=== PATIENT | male | born 1950 | race Two or more races ===

== ENCOUNTER 2025-03-17 16:28 | Inpatient (IN) | payer MEDICARE, OTHER ==
[~2025-03-17] VITALS: Ht 170.2 cm; Wt 86.6 kg
[2025-03-17 17:34] LABS: PLATELET COUNT (AUTO) 123 K/uL (150-450); RED BLOOD CELL COUNT(AUTO) 4.57 MIL/uL (4.5-6.0); RED CELL DISTRIBUTION WIDTH 14.2 % (11.5-15.0); WHITE BLOOD COUNT (AUTO) 6.0 K/uL (4.3-11.0)
[2025-03-17 17:59] LABS: APPEARANCE,URINE CLEAR (CLEAR); BLOOD, URINE NEGATIVE Ery/uL (NEGATIVE); LEUKOCYTE ESTERASE ,URINE 1+ (NEGATIVE); NITRITE, URINE NEGATIVE (NEGATIVE); UGLUCOSE NEGATIVE (NEGATIVE)
[2025-03-17 18:07] LABS: ADD URINE CULTURE YES; SQUAMOUS EPITHELIAL CELL,UR Rare /HPF (None Seen)
[2025-03-17 18:24] LABS: CALCIUM, SERUM 8.5 mg/dL (8.5-10.1); CREATININE 0.9 mg/dL (0.6-1.3); SODIUM SERUM 143 mmol/L (136-145); UREA NITROGEN, BLOOD 17 mg/dL (7-18)
[2025-03-17 18:30] LABS: ASPARTATE AMINOTRANSFERASE 18 U/L (15-37); TOTAL PROTEIN, SERUM 6.3 g/dL (6.4-8.2)
[2025-03-17 18:33] LABS: ALCOHOL, BLOOD < 3 mg/dL (0-10)
[2025-03-17 18:35] LABS: AMPHETAMINE, URINE NEGATIVE (NEGATIVE); BENZODIAZEPINE, URINE NEGATIVE (NEGATIVE); CANNABINOID, URINE NEGATIVE (NEGATIVE); COCCAINE, URINE NEGATIVE (NEGATIVE); OPIATE, URINE NEGATIVE (NEGATIVE)
[2025-03-17 18:36] LABS: BARBITURATE, URINE NEGATIVE (NEGATIVE)
[2025-03-17] MEDS ORDERED: MEMA10TA56 PO (19:16)
[2025-03-17] MEDS ORDERED: ACET-868 PO (19:16)
[2025-03-17] MEDS ORDERED: AMLO10TA4 PO (19:16)
[2025-03-17] MEDS ORDERED: CLON0.5T4 PO (19:16)
[2025-03-17] MEDS ORDERED: TRIA15CR4 TP (19:16)
[2025-03-17] MEDS ORDERED: ATOR80TA PO (19:16)
[2025-03-17] MEDS ORDERED: QUET25TA PO (19:16)
[2025-03-17] MEDS ORDERED: DIVA-76 PO (19:16)
[2025-03-17] MEDS ORDERED: CARV12.5 PO (19:16)
[2025-03-17] MEDS ORDERED: LORA-259 PO (19:16)
[2025-03-17] MEDS ORDERED: LOSA100T31 PO (19:16)
[2025-03-17] MEDS ORDERED: APIX5TAB PO (19:16)
[2025-03-17] MEDS ORDERED: LORAZEPAM 0.5 MG TABLET PO PRN (22:00)
[2025-03-17] MEDS ORDERED: ACETAMINOPHEN 325 MG TABLET PO PRN ×2 (22:00→23:00)
[2025-03-17] MEDS ORDERED: MAGNESIUM HYDROXIDE 30 ML UDC PO PRN (22:00)
[2025-03-17] MEDS: BLOOD SUGAR DIAGNOSTIC 1 EACH STRIP IN ONE (22:58)
[2025-03-17 23:57] VITALS: BP 165/89; TEMP 97.8; O2SAT 98
[2025-03-18] MEDS: TEMAZEPAM 7.5 MG CAPSULE PO PRN (01:10)
[2025-03-18 08:05] VITALS: BP 155/78; TEMP 97.9; O2SAT 99
[2025-03-18] MEDS: MEMANTINE HCL 5 MG TABLET PO SCH (08:46)
[2025-03-18] MEDS: CARVEDILOL 12.5 MG TABLET PO SCH (08:46)
[2025-03-18] MEDS: LOSARTAN POTASSIUM 50 MG TABLET PO SCH (08:46)
[2025-03-18] MEDS: AMLODIPINE BESYLATE 10 MG TABLET PO SCH (08:46)
[2025-03-18] MEDS: APIXABAN 5 MG TABLET PO SCH (08:48)
[2025-03-18] MEDS: TRIAMCINOLONE ACETONIDE 0.1% CR 15 GM TUBE TP SCH (09:11)
[2025-03-18] MEDS ORDERED: DIVALPROEX SODIUM 250 MG TABLET.DR PO SCH (12:00)
[2025-03-18 16:00] VITALS: BP 155/94; TEMP 98.2; O2SAT 98
[2025-03-18] MEDS: QUETIAPINE FUMARATE 25 MG TABLET PO SCH ×2 (17:28→22:06)
[2025-03-18] MEDS: DIVALPROEX SODIUM 250 MG TABLET.DR PO SCH (17:28)
[2025-03-18 17:59] LABS: ASPARTATE AMINOTRANSFERASE 17.0 U/L (15-37); CALCIUM, SERUM 8.8 mg/dL (8.5-10.1); CREATININE 0.9 mg/dL (0.6-1.3); SODIUM SERUM 144.0 mmol/L (136-145); TOTAL PROTEIN, SERUM 6.8 g/dL (6.4-8.2); UREA NITROGEN, BLOOD 15.0 mg/dL (7-18)
[2025-03-18 18:03] LABS: LDL 58.0 mg/dL (0-99)
[2025-03-18 20:00] VITALS: BP 143/93; TEMP 98.8; O2SAT 97
[2025-03-18] MEDS: ATORVASTATIN 40 MG TABLET PO SCH (22:06)
[2025-03-19 08:00] VITALS: BP 142/64; TEMP 97.8; O2SAT 98
[2025-03-19 08:05] LABS: SERUM AMMONIA 27 umol/L (11-32)
[2025-03-19 08:12] LABS: VALPROIC ACID 17 ug/mL (50-100)
[2025-03-19 15:59] VITALS: BP 126/63; TEMP 98.6; O2SAT 100
[2025-03-19 16:26] LABS: CALCIUM, SERUM 8.9 mg/dL (8.5-10.1); CREATININE 0.9 mg/dL (0.6-1.3); SODIUM SERUM 148.0 mmol/L (136-145); UREA NITROGEN, BLOOD 17.0 mg/dL (7-18)
[2025-03-19 20:39] VITALS: BP 122/59; TEMP 98.5; O2SAT 100
[2025-03-19] MEDS: POTASSIUM CHLORIDE 20 MEQ TAB.PRT.SR PO ONE (21:28)
[2025-03-20 08:00] VITALS: BP 122/63; TEMP 98.1; O2SAT 99
[2025-03-20 16:00] VITALS: BP 130/71; TEMP 98.6; O2SAT 100
[2025-03-20 20:52] VITALS: BP 152/67; TEMP 98.6; O2SAT 98
[2025-03-21 08:00] VITALS: BP 141/61; TEMP 97.8; O2SAT 94
[2025-03-21] MEDS: LORAZEPAM 0.5 MG TABLET PO PRN (13:39)
[2025-03-21 16:00] VITALS: BP 107/59; TEMP 97.9; O2SAT 98
[2025-03-21 20:22] VITALS: BP 138/76; TEMP 97.9; O2SAT 97
[2025-03-22 08:00] VITALS: BP 149/64; TEMP 98.7; O2SAT 100
[2025-03-22 16:00] VITALS: BP 138/67; TEMP 98.7; O2SAT 96
[2025-03-22] MEDS: diphenhydrAMINE HCL ELIX 25 MG/10 ML UDC PO PRN (19:54)
[2025-03-22 20:00] VITALS: BP 128/68; TEMP 97.8; O2SAT 100
[2025-03-23 07:13] LABS: PLATELET COUNT (AUTO) 122 K/uL (150-450); RED BLOOD CELL COUNT(AUTO) 4.04 MIL/uL (4.5-6.0); RED CELL DISTRIBUTION WIDTH 14.4 % (11.5-15.0); WHITE BLOOD COUNT (AUTO) 5.6 K/uL (4.3-11.0)
[2025-03-23 07:44] LABS: CALCIUM, SERUM 7.9 mg/dL (8.5-10.1); CREATININE 0.8 mg/dL (0.6-1.3); SODIUM SERUM 146.0 mmol/L (136-145); UREA NITROGEN, BLOOD 14.0 mg/dL (7-18)
[2025-03-23 08:00] VITALS: BP 142/74; TEMP 98.7; O2SAT 100
[2025-03-23 16:00] VITALS: BP_SYST 129; BP_SYST 144; BP_DIAS 68; BP_DIAS 75; TEMP 97.7; TEMP 98.6; O2SAT 100; O2SAT 98
[2025-03-23 19:51] VITALS: BP 125/54; TEMP 97.7; O2SAT 100
[2025-03-24] MEDS: POTASSIUM CHLORIDE 20 MEQ TAB.PRT.SR PO ONE (04:06)
[2025-03-24 08:00] VITALS: BP 128/87; TEMP 98.6; O2SAT 99
[2025-03-24 16:00] VITALS: BP 121/50; TEMP 97.7; O2SAT 99
[2025-03-24 20:34] VITALS: BP 139/87; TEMP 97.6; O2SAT 100
[2025-03-25 08:00] VITALS: BP 129/61; TEMP 97.9; O2SAT 99
[2025-03-25 16:00] VITALS: BP 118/67; TEMP 98.8; O2SAT 99
[2025-03-25 20:12] VITALS: BP 112/83; TEMP 99; O2SAT 96
[2025-03-26] MEDS: TEMAZEPAM 7.5 MG CAPSULE PO PRN (00:45)
[2025-03-26 08:00] VITALS: BP 114/87; TEMP 98.7; O2SAT 100
[2025-03-26 16:00] VITALS: BP 144/54; TEMP 98.7; O2SAT 99
[2025-03-26] MEDS: QUETIAPINE FUMARATE 25 MG TABLET PO SCH (16:46)
[2025-03-26 21:34] VITALS: BP 149/75; TEMP 98.7; O2SAT 97
[2025-03-27 08:00] VITALS: BP 150/60; TEMP 97.7; O2SAT 96
[2025-03-27] MEDS: MAG HYDROX/AL HYDROX/SIMETH 30 ML UDC PO PRN (13:10)
[2025-03-27 16:00] VITALS: BP 98/68; TEMP 98; O2SAT 99
[2025-03-27 20:19] VITALS: BP 129/82; TEMP 98.1; O2SAT 98
[2025-03-28 08:00] VITALS: BP 116/65; TEMP 98; O2SAT 95
[2025-03-28 16:05] VITALS: BP 138/63; TEMP 97.2; O2SAT 98
[2025-03-28 20:35] VITALS: BP 126/59; TEMP 97.8; O2SAT 97
[2025-03-29 08:00] VITALS: BP 151/72; TEMP 97.8; O2SAT 98
[2025-03-29 08:27] VITALS: BP 151/72
== END 2025-03-29 14:00 | DRG 885 ==
LOC: ER 16:39 → GPS 21:23
PROVIDERS: ADMIT Psychiatry & Neurology Psychosomatic Medicine; ATTEND Student in an Organized Health Care Education/Training Program
DX: F29 Unspecified psychosis not due to a substance or known physiological condition (principal); E44.1 Mild protein-calorie malnutrition; E87.0 Hyperosmolality and hypernatremia; F03.92 Unspecified dementia, unspecified severity, with psychotic disturbance; F41.9 Anxiety disorder, unspecified; D69.6 Thrombocytopenia, unspecified; E66.9 Obesity, unspecified; E78.5 Hyperlipidemia, unspecified; I10 Essential (primary) hypertension; Z20.822 Contact with and (suspected) exposure to COVID-19; Z73.6 Limitation of activities due to disability; Z68.29 Body mass index [BMI] 29.0-29.9, adult; E87.6 Hypokalemia
CPT/HCPCS: 36415; 80048-TC; 80053-TC; 80061-TC; 80076-TC; 80164-TC; 81001; 82140-TC; 82962-TC; 84443-TC; 85025-TC; 87081-TC; 87086-TC; 97110-TC; 97116-TC; 97530-TC; G0480; Q0163